=== PATIENT | male | born 1980 | race Two or more races ===

== ENCOUNTER 2024-12-12 19:05 | Emergency (ER) | payer BC ==
[~2024-12-12] VITALS: Ht 188 cm; Wt 98.9 kg
[2024-12-12] MEDS ORDERED: AMLODIPINE-OLM1 EACH PO (19:42)
[2024-12-12] MEDS ORDERED: ORPHENADRINE CITRATE 30 MG/ML AMPUL IM ONE (20:15)
[2024-12-12] MEDS ORDERED: KETOROLAC TROMETHAMINE 60 MG VIAL IM ONE ×2 (20:15→21:09)
[2024-12-12] MEDS ORDERED: ORPHENADRINE CITRATE 30 MG/ML AMPUL ONE (21:09)
== END 2024-12-12 22:45 | disposition home or self-care (01) ==
LOC: ER 19:07
DX: M25.561 Pain in right knee (principal); I10 Essential (primary) hypertension